=== PATIENT | female | born 1975 | race Caucasian/White ===

== ENCOUNTER → 2017-03-20 08:17 | Outpatient (CLI) | payer BC ==
[~2017-03-20 08:17] MED LIST: ALEVE220 MG PO; ESTRACE2 MG; METAMUCIL FIB1 WAFER; MIRALAX17 GM PO; PEPCID20 MG PO; XANAX0.5 MG PO
== END | disposition home or self-care (01) ==
LOC: D.MAMMO 03-05 11:30
DX: Z12.31 Encounter for screening mammogram for malignant neoplasm of breast (principal)

== ENCOUNTER 2019-09-17 14:11 | Outpatient (CLI) | payer BC | END 2019-09-17 14:20 | disposition home or self-care (01) | LOC: D.MAMMO 14:11 | PROVIDERS: ATTEND Registered Nurse Emergency | DX: N64.4 Mastodynia (principal) ==

== ENCOUNTER → 2020-10-25 13:37 | Outpatient (CLI) | payer BC | END | disposition home or self-care (01) | LOC: D.LAB 13:37 | PROVIDERS: ATTEND Internal Medicine Pulmonary Disease | DX: Z11.52 Encounter for screening for COVID-19 (principal) ==

== ENCOUNTER → 2020-10-27 08:44 | Outpatient (CLI) | payer BC | END | disposition home or self-care (01) | LOC: D.CT 10-20 07:45 | PROVIDERS: ATTEND Internal Medicine Pulmonary Disease | DX: R93.89 Abnormal findings on diagnostic imaging of other specified body structures (principal); R06.09 Other forms of dyspnea ==

== ENCOUNTER → 2020-10-29 08:09 | Outpatient (CLI) | payer BC ==
[2020-10-27 09:27] LABS: CREATININE - SERUM 0.9 mg/dL (0.6-1.3)
== END | disposition home or self-care (01) ==
LOC: D.RT 08:00
PROVIDERS: ATTEND Internal Medicine Pulmonary Disease
DX: R06.09 Other forms of dyspnea (principal)